=== PATIENT | female | born 1945 | race Caucasian/White ===

== ENCOUNTER 2017-11-26 20:10 | Emergency (ER) | payer MEDICARE, BC ==
[~2017-11-26] VITALS: Ht 160 cm; Wt 106.6 kg
[~2017-11-26 20:10] MED LIST: ACCUNEB0.63 MG/3 INH; ADVAIR 100-501 EACH INH; ASPIR 8181 MG PO; B12 5,000 MCG1 EACH PO; CALCIUM 1,0001 EACH PO; CARVEDILOL12.5 MG PO; COUMADIN2 MG PO; COUMADIN2.5 MG PO; D3 + K2 DOTS 11 EACH PO; DILTIAZEM 24HR120 MG PO; GABAPENTIN100 MG PO; GABAPENTIN300 MG PO; HYDROCHLOROTHIA25 MG PO; LASIX20 MG PO; NEXIUM40 MG PO; OXYBUTYNIN CHLO15 MG PO
[2017-11-26] MEDS ORDERED: ONDANSETRON HCL INJ 2 MG/ML VIAL IV NR (20:30)
[2017-11-26] MEDS ORDERED: SODIUM CHLORIDE 0.9% 1000ML 1,000 ML IV ONE (20:30)
[2017-11-26 20:55] LABS: BASOPHILS % 0.2 % (0.0-1.0); EOSINOPHILS % 0.2 % (0.0-6.0); HEMATOCRIT 39.9 % (34.2-44.1); HEMOGLOBIN 13.8 g/dL (12.0-16.0); LYMPHOCYTES # (AUTO) 0.8 (1.0-3.2); LYMPHOCYTES % 6.5 % (18.0-39.1); MEAN CORPUSCULAR HEMOGLOBIN 30.9 pg (28-32); MEAN CORPUSCULAR HGB CONC 34.6 g/dL (31-35); MEAN CORPUSCULAR VOLUME 89.5 fL (81-99); MONOCYTES # (AUTO) 0.8 (0.2-0.8); MONOCYTES % 6.4 % (4.4-11.3); NEUTROPHILS # (AUTO) 10.3 (2.1-6.9); NEUTROPHILS % 86.2 % (38.7-80.0); PLATELET COUNT 254 x10e3/uL (140-360); RED BLOOD COUNT 4.46 x10e6/uL (3.6-5.1); RED CELL DISTRIBUTION WIDTH 13.4 % (11.7-14.4)
[2017-11-26 21:13] LABS: ALBUMIN 3.9 g/dL (3.5-5.0); ALBUMIN/GLOBULIN RATIO 0.9 (0.8-2.0); CALCIUM 10.3 mg/dL (8.4-10.2); CREATININE, SERUM 1.06 mg/dL (0.57-1.11)
[2017-11-26 21:42] LABS: BILIRUBIN,URINE NEGATIVE (NEGATIVE); CLARITY,URINE SL CLOUDY (CLEAR); COLOR,URINE YELLOW (YELLOW); KETONES,URINE TRACE (NEGATIVE); LEUKOCYTE ESTERASE ,URINE TRACE (NEGATIVE); NITRITE,URINE NEGATIVE (NEGATIVE); PROTEIN,URINE DIPSTICK TRACE (NEGATIVE); URINE UROBILINOGEN 0.2 mg/dL (0.2 - 1)
[2017-11-26 21:53] LABS: BACTERIA,URINE MODERATE /HPF; EPITHELIAL CELLS,URINE FEW /LPF; MUCUS,URINE FEW (RARE)
--- NOTE | 2017-11-26 23:25 | Diagnostic Imaging Report ---
EXAM: CT ABDOMEN AND PELVIS without IV CONTRAST INDICATION: Abdominal pain, midepigastric COMPARISON: None TECHNIQUE: The abdomen and pelvis were scanned using a multidetector helical scanner. Coronal and sagittal reformations were obtained. Routine protocol performed. IV Contrast: None Oral Contrast: There is a tiny bit of Redic[place] in the stomach, but nowhere else in the bowel. CTDIvol has been reviewed. It is below the limits set by the Radiation Protocol Committee (RPC). FINDINGS: LOWER THORAX: No consolidations LIVER: No masses BILIARY: Cholecystectomy without ductal dilation. SPLEEN: No masses PANCREAS: No masses ADRENALS: Right adrenal gland 1 cm adenoma. RIGHT KIDNEY: No nephroureterolithiasis or hydronephrosis. LEFT KIDNEY: No nephroureterolithiasis or hydronephrosis. GI TRACT: Small bowel obstruction without transition point identified, though likely in the right lower quadrant of the abdomen. The distal ileum is decompressed. Advanced sigmoid colon diverticulosis. The appendix is not identified. VESSELS: No abdominal aortic aneurysm. PERITONEUM/RETROPERITONEUM: Mesenteric edema surrounding the dilated loops of small bowel. LYMPH NODES: No lymphadenopathy REPRODUCTIVE ORGANS: Uterus and ovaries are not visualized. BLADDER: Normal SOFT TISSUES: Surgical changes of ventral hernia repair. BONES: No suspicious bone lesions. IMPRESSION: Small bowel obstruction with bowel loops measuring up to 3.5 cm and adjacent mesenteric edema. Transition point not visualized, though likely in the right lower quadrant of the abdomen due to adhesions. Evidence of prior ventral hernia repair and bowel surgery. Signed by: Dr. Althea Salcido M.D. on 11/26/2017 11:22 PM
[2017-11-27] MEDS ORDERED: MORPHINE SULFATE 2 MG/ML SYR IV STA (01:25)
[2017-11-27] MEDS ORDERED: PANTOPRAZOLE 40 MG 10ML VIAL IV STA (01:47)
[2017-11-27] MEDS ORDERED: ONDANSETRON HCL INJ 2 MG/ML VIAL IV STA (02:01)
[2017-11-27 03:40] VITALS: BP 153/74
== END 2017-11-27 03:43 | disposition short-term general hospital (02) ==
LOC: ER 20:10
DX: R10.10 Upper abdominal pain, unspecified (principal); R10.33 Periumbilical pain; R11.2 Nausea with vomiting, unspecified; K56.609 Unspecified intestinal obstruction, unspecified as to partial versus complete obstruction; I10 Essential (primary) hypertension; I48.91 Unspecified atrial fibrillation; K21.9 Gastro-esophageal reflux disease without esophagitis; Z86.73 Personal history of transient ischemic attack (TIA), and cerebral infarction without residual deficits
CPT/HCPCS: 36415; 74176; 80053; 81001; 82150; 83690; 85025; 93005; 96374; 99284; J2270; J2405; J7030